=== PATIENT | male | born 1965 | race Caucasian/White ===

== ENCOUNTER 2016-07-07 14:00 | Inpatient (IN) | payer OTHER ==
[~2016-07-07] VITALS: Ht 188 cm; Wt 139.2 kg
--- NOTE | ~2016-07-07 | OR ---
PATIENT'S NAME: JEROME [facility]ING [facility] AGE: 51 Y [address] ROOM: [place] [address] LOCATION: [facility] ADMIT DATE: 07/19/2016 OR/Procedure Report DISCHARGE DATE: FAMILY PHYSICIAN: BALTAZAR PARMAR MD ATTENDING PHYSICIAN: PERCY BUCKNER SURGEON: Percy Buckner MD CASHIER AND SALESPERSON: Justin Livingston PA-C and Leo Marrufo CST/DRUG SAFETY DATA MANAGEMENT SPECIALIST. DATE OF PROCEDURE: 07/19/2016 PRE-OP DIAGNOSIS: Osteoarthritis, right hip. POST-OP DIAGNOSIS: Osteoarthritis, right hip. OPERATION: Right total hip arthroplasty. ANESTHESIA: Spinal anesthesia plus subcutaneous and periarticular local anesthesia (ropivacaine with epinephrine and Toradol). ESTIMATED BLOOD LOSS: Approximately 275 mL. DRAIN: None. SPECIMEN: None. COMPLICATIONS: None. IMPLANTS: 1. [place] Trident titanium size 62 mm hemispherical uncemented acetabular shell with one dome hole cover and no screws. 2. [place] X3 neutral acetabular polyethylene liner with 36 mm inner diameter. 3. [place] Accolade II, size 10, high offset, uncemented femoral component. 4. A 36 mm diameter Biolox femoral head with -5 mm neck length. INDICATION FOR SURGERY: Jerome King is a 51-year-old male who presents with advanced right hip osteoarthritis and associated severely compromised activities of daily living. The patient has decided to proceed with hip replacement after having been thoroughly counseled regarding the associated risks, benefits, and limitations. We have specifically reviewed the risks and implications of infection, deep venous thrombosis, pulmonary embolism, mortality, neurovascular complications, blood transfusion (and associated potential for disease transmission or transfusion reaction), stiffness, instability, leg length discrepancy, mechanical deterioration of the components (due to wear and to loosening), and the potential need for PATIENT'S NAME: JEROME KING [facility] AGE: 51 Y [address] ROOM: [place] [address] LOCATION: [facility] ADMIT DATE: 07/19/2016 OR/Procedure Report DISCHARGE DATE: FAMILY PHYSICIAN: BALTAZAR PARMAR MD ATTENDING PHYSICIAN: PERCY BUCKNER revision. DESCRIPTION OF PROCEDURE: The patient was positioned in a lateral decubitus position with the right side up after administration of anesthesia and prophylactic antibiotics. An axillary roll was placed and the non-operative leg was well padded. The pelvis was locked perpendicularly to the floor on a pegboard. The right hip and entire operative extremity were prepped and draped with vigilant sterile technique. The patient's name as well as the intended operative side and procedure were confirmed with a verbal time-out involving myself, the circulating nurse, the scrub nurse, and the anesthesiologist. The right hip was approached through a standard posterolateral incision. The fascia yusuf and the gluteus stephanie fascia were sharply divided in line with the overlying skin incision. The sciatic nerve was identified and was vigilantly protected throughout the entire case. The short external rotators and posterior capsule were divided from their respective femoral insertions and tagged with four #1 Ethibond sutures for later repair. The hip was posteriorly dislocated with combined flexion, adduction, and internal rotation. The femoral neck osteotomy was performed with an oscillating saw. Inspection of the femoral head demonstrated decreased femoral head-neck offset. There was full-thickness loss of articular cartilage throughout the weightbearing surface of the femoral head. Circumferential acetabular exposure was obtained. Examination of acetabulum demonstrated a large effusion consisting of benign appearing translucent synovial fluid. There were no loose bodies. There was a large medial acetabular osteophyte. There was a large inferior acetabular osteophyte. There was a large anterior acetabular osteophyte. There was a moderate sized posterior acetabular osteophyte. There was full-thickness loss of articular cartilage throughout the acetabular dome. There was no dysplasia. Remnants of the acetabular labrum were sharply thoroughly excised. The acetabulum was sequentially progressively reamed up to 61 mm with hemispherical power reamers. The final acetabular shell was impacted into position in 20 degrees of anteversion and 45 degrees of inclination. An excellent press-fit was obtained. No supplemental dome screw fixation was necessary. A neutral trial liner was inserted. Attention was next focused upon femoral preparation. The femoral canal initiator was utilized. No reaming was performed (except for with the canal finder) the femoral canal was subsequently sequentially progressively broached up to a size 10. The size 10 broach obtained excellent axial and rotational stability. Trial reductions with the above specified construct yielded PATIENT'S NAME: JEROME KING [facility] AGE: 51 Y [address] ROOM: [place] [id number] LOCATION: [facility] ADMIT DATE: 07/19/2016 OR/Procedure Report DISCHARGE DATE: FAMILY PHYSICIAN: BALTAZAR PARMAR MD ATTENDING PHYSICIAN: PERCY BUCKNER acceptable stability and acceptable reproduction of leg length and offset. All trial components were removed. The final acetabular liner was inserted with excellent circumferential visualization of its locking mechanism to assure adequate deployment. The final femoral component was impacted into position. The femoral component achieved excellent axial and rotational stability. The trunnion of the femoral component was vigilantly protected prior to placement of the femoral head. The trunnion of the femoral component was thoroughly cleaned and dried prior to placement of the femoral head. The incision was thoroughly irrigated with bacteriostatic pulsatile saline lavage multiple times throughout the case. The entire joint space was thoroughly inspected and thoroughly irrigated to assure that there was no residual debris of any sort. A final reduction was then performed. After final reduction, the hip could be firmly externally rotated in full extension and zero degrees of abduction without anterior subluxation. In neutral rotation and zero degrees of abduction, the hip could be firmly flexed to 120 degrees without instability. At 90 degrees of flexion and zero degrees abduction, the hip could be internally rotated to 50 degrees before there was any hint of posterior subluxation. The posterior capsule and short external rotators were repaired through two drill holes in the posterior aspect of the greater trochanter. The fascia yusuf and gluteus stephanie fascia were closed with multiple simple and [id number] interrupted # 1 Ethibond and #1 Vicryl sutures. Subcutaneous tissues were thoroughly re-irrigated with bacteriostatic pulsatile saline lavage. Subcutaneous tissues were re-approximated with simple buried interrupted #0 Vicryl sutures. The skin was closed with superficial buried interrupted 2-0 Vicryl sutures followed by a running subcuticular 3-0 Monocryl suture, followed by Octylseal, followed by Steri- Strips with benzoin, followed by an occlusive Mepilex dressing. There were no intra-operative complications. It should be noted that the physician's assistant professor of education played an active, integral role throughout this entire operation. By providing expert retraction, they greatly facilitated and expedited safe and effective exposure of the proximal femur and acetabulum for preparation and implantation of the components. They were also actively involved in the patient's positioning, prepping and draping, as well as wound closure. PATIENT'S NAME: JEROME KING [facility] AGE: 51 Y [address] ROOM: [address] [address] LOCATION: [facility] ADMIT DATE: 07/19/2016 OR/Procedure Report DISCHARGE DATE: FAMILY PHYSICIAN: BALTAZAR PARMAR MD ATTENDING PHYSICIAN: PERCY BUCNKER MD DANNI BRITO/pily /[id number] d: 07/19/16 1516 t: 07/23/16 1747, OPERATIVE SUMMARY
[~2016-07-07 14:00] MED LIST: AMLODIPINE BESY10 MG PO; CPAP INH; DRISDOL 5050000 UNIT PO; INVOKAMET 50-51 EACH PO; JANUVIA 100 MG100 MG PO; LEVOTHROID (S112 MCG PO; LOPRESSOR25 MG PO; LOVENOX 8080 MG/0.8 SUB-Q; OXYGEN M-15 INH; PRILOSEC20 MG PO; XARELTO20 MG PO
[2016-07-07] MEDS ORDERED: XARELTO20 MG PO (14:23)
--- NOTE | 2016-07-19 16:58 | NUR ---
Introduced self/role to patient at bedside who lives in [place] with , Sarah. Attended the preop joint class. Reports he has a split level home. Has walker, crutches, bath seat, elevated toilet seat. Has a combination tub/shower with curtain. Reviewed and encouraged use of IS. Encouraged waving of his feet; has foot pumps and PEDRITO hose on bilaterally. No needs anticipated. Will follow and assist as advised.
--- NOTE | 2016-07-19 17:30 | NUR ---
Pt here from PACU at 1605. He had a spinal anesthetic. Sensation to toes, but still has numbness and tingling. Able to move them. Pt has reynauds syndrome and sat probe on left foot as doesn't pick up driver well on fingers. Pt is diabetic, sleep apnea, brought CPAP. Pt uses IS at 3000. No void since OR. Pt has mepilex to hip and ice to hip. Pt had dilaudid at 1705 for pain rated at 3 and described as burning. Pt has a pacemaker and history of a fib and hypertension. He is on room air. Not out of bed yet. VS for you will be last 30 min at 1850.
[2016-07-19] MEDS ORDERED: ZESTRIL2.5 MG PO (18:07)
[2016-07-19] MEDS ORDERED: VITAMIN D-32000 UNI1 PO (18:08)
--- NOTE | 2016-07-20 03:41 | NUR ---
Significant Event: A/O X 3. IV FLUIDS SALINE LOCKED. TAKES FLUIDS, NO NAUSEA. VOIDED X 2 LARGE AMOUNTS IN URINAL. MEPILEX DRSGS RIGHT HIP DRY INTACT, ICE BAG TO SITE. PILLOWS KEPT BETWEEN KNEES. PEDRITO HOSE OFF AT HS. BILATERAL FOOT PUMPS TO FEET. DENIES NUMBNESS OR TINGLING. WIGGLES TOES, PEDAL PULSES PRESENT. AT [id number], PATIENT DANGLED AT BEDSIDE, AND TAKEN A FEW STEPS IN ROOM WITH WALKER AND GAITBELT, 2 ASSIST AND DID WELL. PAIN WITH MOVEMENT. HAD DILAUDID 2MG TAB X 3 LAST AT 0202. ON SCHEDULED ROUTINE TYLENOL X STRENGTH 17/08. ON IV ATB THERAPY. INCENTIVE SPIROMETER USAGE WELL. CPAP AT HS. AT 2130 ACCUCHECK WAS 168, NO INSULIN COVERAGE NEEDED. Follow up:
[2016-07-20 05:25] LABS: HEMOGLOBIN 12.1 g/dL (12.0-17.0)
--- NOTE | 2016-07-20 08:10 | NUR ---
Introduced self/role to patient. He denied any discharge needs. Has the DME he will need and has family support. Wrote my name on his marker board, will continue to follow.
[2016-07-20] MEDS ORDERED: TYLENOL EXTRA500 MG PO (15:29)
[2016-07-20] MEDS ORDERED: COLACE100 MG PO (15:30)
[2016-07-20] MEDS ORDERED: NEURONTIN300 MG PO (15:31)
[2016-07-20] MEDS ORDERED: MIRALAX17 GM PO (15:33)
[2016-07-20] MEDS ORDERED: DILAUDID 2MG(HYD2 MG PO (15:36)
[2016-07-20] MEDS ORDERED: VALIUM5 MG PO (15:38)
--- NOTE | 2016-07-20 18:51 | NUR ---
Pt home with spouse this jose eduardo. He has been up and about with one assist, walker and gait belt. Pt understands hip dislocation precautions, home medications, activity, wound care,when to call Dr. Pt has mepilex over wound and it is dry and intact. Pt uses IS well. Dilaudid po for pain and last rating was a 2. Pt CSMWNL. Pt uses CPAP at home. Pt discharged in stable condition with belongings
== END 2016-07-20 18:25 | disposition disaster alternative care site (69) | DRG 470 ==
LOC: G3N 07-19 08:19
PROVIDERS: Physician Assistant Surgical; ADMIT Orthopaedic Surgery
PROC: 0SR902A Replacement of Right Hip Joint with Metal on Polyethylene Synthetic Substitute, Uncemented, Open Approach (ICD-10-PCS; principal; 2016-07-19)
DX: M16.11 Unilateral primary osteoarthritis, right hip (principal); E11.40 Type 2 diabetes mellitus with diabetic neuropathy, unspecified; M34.9 Systemic sclerosis, unspecified; Z68.41 Body mass index [BMI] 40.0-44.9, adult; E03.9 Hypothyroidism, unspecified; E78.5 Hyperlipidemia, unspecified; E55.9 Vitamin D deficiency, unspecified; E66.9 Obesity, unspecified; I73.00 Raynaud's syndrome without gangrene
CPT/HCPCS: C1776; J0690; J1885; J2795; J7030

== ENCOUNTER → 2016-07-08 | Outpatient (CLI) | payer OTHER ==
[~2016-07-08] MED LIST changes: +COLACE100 MG PO; +DILAUDID 2MG(HYD2 MG PO; +MIRALAX17 GM PO; +NEURONTIN300 MG PO; +TYLENOL EXTRA500 MG PO; +VALIUM5 MG PO; +VITAMIN D-32000 UNI1 PO; +ZESTRIL2.5 MG PO
== END | disposition disaster alternative care site (69) ==
LOC: GNJRC 10:38
DX: Z01.812 Encounter for preprocedural laboratory examination (principal); M16.11 Unilateral primary osteoarthritis, right hip